=== PATIENT | male | born 1940 | race Caucasian/White ===

== ENCOUNTER → 2017-02-11 | Outpatient (CLI) | payer MEDICARE, OTHER ==
[2017-02-11 11:36] LABS: Blood Urea Nitrogen 11 mg/dL (9-20); Non-African American GFR(MDRD) >60 (>60 ml/min/1.73 sqM)
--- NOTE | 2017-02-12 10:43 | CT ---
EXAMINATION TYPE: CT ChestAbdPelvis w con DATE OF EXAM: 02/11/2017 INDICATION: Lung cancer COMPARISON: 07/30/2016 CT chest abdomen pelvis [facility]. CT DLP: 1833 mGycm CONTRAST: Performed with Oral Contrast and with IV Contrast, patient injected with 100 mL of Omnipaque 300. TECHNIQUE: Axial images at 5 mm thick sections. Reconstructed images in the coronal plane. Delayed images through the kidneys. FINDINGS: CT CHEST: Portion of the thyroid visualized is normal. There is stranding and thickening through the superior right hilar region. This area appears stable f rom comparison. There is a 0.4 cm area of increased density in the posterior lateral right lung and some vascular inv olvement. Series 3 image 33 this is stable from 07/30/2016. No enlarged mediastinal or hilar adenopathy is evident. The ascending aorta diameter at the level of the main pulmonary artery is 3.0 cm. The main pulmonary artery diameter at the bifurcation is 1.6 cm. Coronary artery calcification is likely present. CT ABDOMEN: Liver: There is a 0.8 cm hypodensity in the superior left lobe liver is better visualized currently o n this examination and appears more cystlike currently. Spleen: Normal Pancreas: Normal Adrenal glands: The adrenal glands are normal. Gallbladder: Normal Kidneys: No masses are evident. No hydronephrosis is present. No cysts are present. Delayed images were obtained through the kidneys, which remain unremarkable. Aorta: Vascular calcification is within the aorta. There is a stable infrarenal abdominal aortic fus iform prominence with an AP diameter of 3.4 cm. Partial resection may be present midportion. Series 3 image 75. These findings are stable from the comparison. 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 These are stable from comparison. Inferior vena cava: Normal. CT PELVIS: Loops of bowel within the abdomen and pelvis are normal. There are loops of bowel which are incom pletely distended or lack oral contrast limiting their evaluation. Diverticular changes are within th e sigmoid colon. Appendix: Normal as visualized. Urinary bladder: Normal. Genitourinary structures: Prostate is prominent. Osseous structures: No suspicious lytic or sclerotic lesions. Few small inguinal lymph nodes are present. IMPRESSIONS: 1. Stable right suprahilar and apical findings. 2. Stable 3.4 cm abdominal aortic fusiform prominence. 3. Diverticulosis without acute diverticulitis. 4. Stable hypodensity within the liver
== END | disposition home or self-care (01) ==
LOC: RADCTMAIN 10:42
PROVIDERS: ATTEND Internal Medicine Hematology & Oncology
DX: K57.90 Diverticulosis of intestine, part unspecified, without perforation or abscess without bleeding (principal); R93.2 Abnormal findings on diagnostic imaging of liver and biliary tract; C34.11 Malignant neoplasm of upper lobe, right bronchus or lung
CPT/HCPCS: 82565; 84520; 71260; 74177; 36415; Q9967

== ENCOUNTER → 2017-09-09 | Outpatient (CLI) | payer MEDICARE, OTHER ==
--- NOTE | 2017-09-09 13:43 | CT ---
EXAMINATION TYPE: CT ChestAbdPelvis w con DATE OF EXAM: 09/09/2017 COMPARISON: 02/11/2017 HISTORY: 77-year-old male follow-up Lung CA TECHNIQUE: Contiguous axial scanning of the chest, abdomen, and pelvis performed with IV Contrast, pa tient injected with 100 mL of Isovue 300. Delayed images through the kidneys were obtained. Coronal/s agittal reconstructions performed. CT DLP: 976.9 mGycm Automated exposure control for dose reduction was used. FINDINGS: Chest: Heart is normal size without pericardial effusion. Coronary vessel calcifications are present in jagdeep rkable for coronary artery disease. Mild atherosclerotic calcifications and plaques throughout the thoracic aorta. Monitor scarring narro wing at the origin of the left subclavian artery. Conventional arch vessel branching anatomy. Stable medial right upper lobe volume loss and consolidation extending up to the apex from the hilum. Additional strandy and patchy densities throughout the right upper lobe are also unchanged with more focal density posteriorly suggesting scar. A 6 mm subpleural pulmonary nodule posterior superior segment right lower lobe axial image 17 appears new but could represent an area of nodular atelectasis. Strandy bibasilar atelectasis. No new consolidation or pleural effusion. Numerous collateral vessels redemonstrated along the anterior left upper chest No thoracic lymphadenopathy. ABDOMEN: Subcentimeter hypodensity left hepatic dome is unchanged Questionable filling defect within the lower bile duct, axial image 66 and coronal image 38. Bile nancy t caliber is unchanged at 6 mm. Gallbladder, adrenal glands, kidneys, spleen, and pancreas show no gross abnormal mobility. No dilated small bowel, free fluid, or free air. Normal appendix. Oral contrast has progressed to the distal transverse colon. There is left hemicolon ic diverticulosis, greatest in the proximal sigmoid without pericolonic inflammatory change. Moderate atherosclerotic calcifications throughout the abdominal aorta and iliac arteries. Accessory right renal artery is noted. Fusiform AAA measuring 3.3 cm not significantly changed. Moderate atherosclerotic changes within the iliac arteries with a ectasia of the right and left common iliac arteries at 1.6 cm each relatively s imilar. Pelvis: Bladder urine distended. Prostate gland prominent at 4.5 cm wide. No abnormal fluid collection in the pelvis or pelvic lymphadenopathy. Bones: Mild degenerative changes of the hips. Additional degenerative changes mid to lower lumbar spine and endplate spondylosis mid to lower thoracic spine. No osseous destructive process. IMPRESSION: 1. STABLE MEDIAL RIGHT UPPER LOBE VOLUME LOSS AND CONSOLIDATION EXTENDING FROM THE APEX TO THE HILUM. FINDING SUGGEST CHRONIC POSTTREATMENT CHANGE. 2. A 6 MM SUBPLEURAL PULMONARY NODULE POSTERIOR RIGHT MID LUNG APPEARS NEW BUT MAY REPRESENT AN AREA OF NODULAR ATELECTASIS. 3 MONTH FOLLOW-UP EXAM IS RECOMMENDED TO REASSESS. 3. QUESTIONABLE FILLING DEFECT WITHIN THE LOWER BILE DUCT. CORRELATE WITH ALKALINE PHOSPHATASE AND BI LIRUBIN LEVELS. THE OVERALL CALIBER OF THE BILE DUCT IS STABLE AND NORMAL. IF NO INTERVENTION AT THIS TIME, THIS CAN ALSO BE REASSESSED AT THE 3 MONTH FOLLOW-UP. 4. 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 5. LEFT-SIDED COLONIC DIVERTICULOSIS.
== END | disposition home or self-care (01) ==
LOC: RADCTMAIN 10:02
PROVIDERS: ATTEND Internal Medicine Hematology & Oncology
DX: C34.11 Malignant neoplasm of upper lobe, right bronchus or lung (principal); J98.4 Other disorders of lung; R91.1 Solitary pulmonary nodule; I71.4 Abdominal aortic aneurysm, without rupture; K57.30 Diverticulosis of large intestine without perforation or abscess without bleeding; I77.89 Other specified disorders of arteries and arterioles
CPT/HCPCS: 82565; 84520; 71260; 74177; 36415; Q9967

== ENCOUNTER → 2018-01-09 | Outpatient (CLI) | payer MEDICARE, OTHER ==
--- NOTE | 2018-01-09 11:18 | CT ---
EXAMINATION TYPE: CT chest w con DATE OF EXAM: 01/09/2018 COMPARISON: Chest CT September 09, 2017 and older studies. HISTORY: Lung cancer CT DLP: 375.50 mGycm. Automated Exposure Control for Dose Reduction was Utilized. TECHNIQUE: CT scan of the thorax is performed following with IV Contrast, patient injected with 100 ml mL of Isovue 300. FINDINGS: LUNGS: There is redemonstration of pleural and parenchymal scarring in the right upper lobe with volu me loss, there is honeycombing most prominent along medial aspect of the right upper lobe abutting th e mediastinum redemonstrated. There is stable 6 x 4 mm subpleural nodular consolidation superior aspe ct right lower lobe axial image 21 favoring round atelectasis. No new parenchymal nodules or masses a re identified bilaterally. There is new small to tiny right pleural effusion noted with associated co mpressive and linear atelectasis in the right lung base. Right hilar bronchial wall thickening remain s present. MEDIASTINUM: There are no new greater than 1 cm hilar or mediastinal lymph nodes. There is stable sof t tissue thickening right hilar region near axial image 24 significant change from prior studies. N o cardiomegaly or pericardial effusion is seen. Moderate mixed plaque in the aortic arch and descend ing aorta is present. OTHER: Plaque extends into abdominal aorta and branch vessels. There is partial visualization of th e infrarenal abdominal aortic aneurysm measuring up to 3.1 cm on axial image 74. Occasional subcentim eter low dense lesions throughout liver is redemonstrated 2 small to further characterize per presume d benign for reference axial image 52 left hepatic dome. Prominent collateral vessels in the left ant erior upper chest are redemonstrated IMPRESSION: Overall stable findings, post treatment changes right upper lung and hilum redemonstrated . No new suspicious nodules or masses clearly seen.
== END ==
LOC: RADCTMAIN 08:43
PROVIDERS: ATTEND Internal Medicine Hematology & Oncology
DX: C34.11 Malignant neoplasm of upper lobe, right bronchus or lung (principal)
CPT/HCPCS: 82565; 84520; 71260; 36415; Q9967

== ENCOUNTER → 2018-06-01 | Outpatient (CLI) | payer MEDICARE, OTHER ==
--- NOTE | 2018-06-01 13:39 | CT ---
EXAMINATION TYPE: CT chest w con DATE OF EXAM: 06/01/2018 COMPARISON: 01/09/2018 HISTORY: Lung CA CT DLP: 323 mGycm Automated exposure control for dose reduction was used. CONTRAST: CT scan of the chest is performed with IV Contrast, patient injected with 80 mL of Isovue 300. FINDINGS: LUNGS: There is redemonstration of pleural and parenchymal scarring in the right upper lobe with volu me loss, there is honeycombing most prominent along medial aspect of the right upper lobe abutting th e mediastinum redemonstrated. There is stable 6 x 4 mm subpleural nodular consolidation superior aspe ct right lower lobe unchanged prior exam. No new parenchymal nodules or masses are identified bilater ally. There is a small to pleural effusion noted with associated compressive and linear atelectasis in the right lung base. Right hilar bronchial wall thickening remains present. On image 34 there is a vague area of nodularity measuring 5 mm within the superior segment right lower lobe stable from the prior exam. MEDIASTINUM: There are no new greater than 1 cm hilar or mediastinal lymph nodes. There is stable sof t tissue fullness and thickening along the right hilum unchanged from prior exam. No pericardial effu sanket or cardiomegaly. Atherosclerotic changes of the aorta noted. Coronary artery calcification seen. There is reduced enhancement of the azygos vein which may be related to the phase of imaging althoug h a chronic thrombosis not excluded and appear stable. OTHER: Plaque extends into abdominal aorta and branch vessels. There is partial visualization of the infrarenal abdominal aortic aneurysm measuring up to 3.1 cm. Occasional subcentimeter low dense lesi ons throughout liver is redemonstrated 2 small to further characterize per presumed benign left hepat ic dome. Hypertrophic and degenerative change of the vertebral column. There is a stable subcutaneous nodule in the anterior chest wall measuring 9 mm. Numerous collateral venous prominent structures are seen involving the left upper extremity within th e subcutaneous tissues. This suggest either central venous occlusion. As noted above the azygous vein does not enhance well. Visualized SVC is patent. Ultrasound could BE obtained to assess remaining ve nous anatomy. Finding is stable and therefore likely chronic. Cystic changes involving the glenoid are stable and likely post arthritic unchanged from multiple estrella or CT scans. IMPRESSION: 1. Stable posttreatment changes involving the right upper lung and hilum are unchanged from the prior exam. No stenosis but pulmonary nodules.
== END ==
LOC: RADCTMAIN 08:12
PROVIDERS: ATTEND Internal Medicine Hematology & Oncology
DX: C34.11 Malignant neoplasm of upper lobe, right bronchus or lung (principal); Z98.890 Other specified postprocedural states
CPT/HCPCS: 82565; 84520; 71260; 36415; Q9967

== ENCOUNTER → 2018-11-30 | Outpatient (CLI) | payer MEDICARE, OTHER ==
--- NOTE | 2018-11-30 10:33 | CT ---
EXAMINATION TYPE: CT chest w con DATE OF EXAM: 11/30/2018 COMPARISON: CT chest June 01, 2018 and older CTs HISTORY: Follow up lung cancer initially diagnosed 3.[address] DLP: 334.3 mGycm. Automated Exposure Control for Dose Reduction was Utilized. TECHNIQUE: CT scan of the thorax is performed following with IV Contrast, patient injected with 80 m L of Isovue 300. FINDINGS: LUNGS: There is persistent right upper lung volume loss with medial scarring extending to the right h ilum with superior extension to the right lung apex where there is moderate pleural/parenchymal scarr ing. Right hilar retraction is redemonstrated. There is increasing soft tissue fullness right hilar/s uprahilar region seen best coronal image 52 and axial image 17 where right upper lobe bronchus bifurc ates. This area is suspicious for recurrent neoplasm measuring roughly 2.1 x 2.2 cm axial image 16. T here is increased soft tissue abutting the mediastinum just posterior to the SVC at this level. Subca rinal soft tissue extension also is more prominent versus prior study. There is persistent right basi lar linear scarring. Left lung remains clear. No pleural effusion or pneumothorax is noted. MEDIASTINUM: There are no greater than 1 cm hilar or mediastinal lymph nodes. No cardiomegaly or pe ricardial effusion is seen. Coronary artery calcification is present which is noted marker for under lying coronary artery disease. Poor enhancement of the azygos vein is again noted, cannot exclude grazyna t in portions similar to prior. OTHER: There is stable 9 mm anterior right lower thoracic dermal-based lesion axial image 41 presumed benign. Aneurysm of the renal abdominal aorta up to 3.3 cm on inferior axial images is li ernie stable from prior studies. Moderate multilevel spurring of thoracic spine is redemonstrated. Pro minent collateral vessels anterior left upper extremity are redemonstrated. 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 IMPRESSION: Suspicious increasing soft tissue right hilar/suprahilar level worrisome for recurrent ne oplasm. Consider bronchoscopy and/or PET/CT to further evaluate.
== END | disposition home or self-care (01) ==
LOC: RADCTMAIN 08:57
PROVIDERS: ATTEND Internal Medicine Hematology & Oncology
DX: Z03.89 Encounter for observation for other suspected diseases and conditions ruled out (principal); C34.11 Malignant neoplasm of upper lobe, right bronchus or lung
CPT/HCPCS: 82565; 84520; 71260; Q9967

== ENCOUNTER → 2018-12-11 | Outpatient (CLI) | payer MEDICARE ==
--- NOTE | 2018-12-14 14:34 | PE ---
Nuclear medicine PET/CT HISTORY: Lung carcinoma, subsequent Patient received 11.3 mCi F-18 FDG intravenously in delayed scanning was performed from the skull bas e to the mid thighs. Localization and attenuation correction CT scan was performed Correlation CT chest 11/30/2018 Neck and chest: Abnormal soft tissue within the right suprahilar region shows associated hypermetabol ic uptake, SUV is 10.2. Probable posttreatment changes, scarring and postradiation findings are again seen. There is no evident mediastinal or axillary adenopathy. No cervical or supraclavicular adenopa thy. No additional hypermetabolic uptake. No pleural or pericardial effusion. Coronary artery calcifi cations are present. ABDOMEN: There is no evident liver mass. No adrenal lesion or retroperitoneal adenopathy. No suspicio us hypermetabolic uptake. There is a infrarenal abdominal aortic aneurysm present measuring 2.7 cm. P rostate is enlarged and shows associated calcification. Osseous structures: Degenerative disc changes at the lumbosacral spine. There is associated facet art hropathy in the lumbar spine. IMPRESSION: Findings compatible with recurrent lung carcinoma.
== END | disposition home or self-care (01) ==
LOC: RADPETMAIN 14:17
PROVIDERS: ATTEND Internal Medicine Hematology & Oncology
DX: C34.11 Malignant neoplasm of upper lobe, right bronchus or lung (principal)
CPT/HCPCS: 78815; A9552

== ENCOUNTER 2018-12-24 09:51 | Day surgery (SDC) | payer MEDICARE ==
[2018-12-21 11:39] VITALS: BMI 25.4
[~2018-12-24 09:51] MED LIST: ALBUTEROL NEB (CONC) 2.5 MG/0.5 ML INHALATION ONE; ATROPINE SULFATE 0.4 MG/ML 1 ML VIAL IM ONE; HYDROmorphone 0.5 MG/0.5 ML SYRINGE IVP PRN; LACTATED RINGERS 1,000 ML IV SCH; LIDOCAINE 1% 20 ML VIAL (10MG/ML) FOR IV START INTRADERMA PRN; LIDOCAINE 2% (PF) 20 MG/ML 5 ML VIAL INHALATION ONE; LIDOCAINE VISCOUS 300 MG/15 ML CUP MUCOUS MEM ONE; ONDANSETRON 4 MG/2 ML VIAL IVP ONE; SODIUM CHLORIDE 0.9% 1,000 ML IV SCH
--- NOTE | 2018-12-24 11:22 | CT ---
EXAMINATION TYPE: CT Chest gia Andrew Protocol DATE OF EXAM: 12/24/2018 COMPARISON: Chest CT November 30, 2018 and older CTs. Most recent PET/CT December 11, 2018. HISTORY: Prebronchoscopy. History of lung cancer with recent abnormal CT and PET/CT. CT DLP: 563 mGycm Automated exposure control for dose reduction was used. FINDINGS: Exam is for bronchoscopy planning and not for diagnostic purposes. Background right-sided volume loss with mediastinal shift and superior hilar retraction. Persistent suprahilar masslike consolidation c orrelates with recent CT and PET/CT suspicious for neoplastic recurrence. Trace right pleural effusio n noted on current study. Coronary artery calcification is incidentally noted. IMPRESSION: As above.
[2018-12-24] MEDS ORDERED: fentaNYL (PF) 50 MCG/ML 2 ML AMP ONE (12:09)
[2018-12-24] MEDS ORDERED: LIDOCAINE 1% INJ 10MG/ML (20 ML MDV) ONE (12:09)
[2018-12-24] MEDS ORDERED: SUCCINYLCHOLINE CHLORIDE 100 MG/5 ML SYR IV ONE (12:09)
[2018-12-24] MEDS ORDERED: ePHEDrine SULFATE/0.9% NACL/PF 50 MG/5 ML SYRINGE IV ONE (12:09)
[2018-12-24] MEDS ORDERED: ROCURONIUM BROMIDE 10 MG/ML 10 ML VIAL IV ONE (12:09)
[2018-12-24] MEDS ORDERED: NEOSTIGMINE 1 MG/ML 10 ML VIAL ONE (12:09)
[2018-12-24] MEDS ORDERED: PHENYLEPHRINE-0.9% NACL SYG 1 MG/10 ML SYRINGE ONE (12:09)
[2018-12-24] MEDS ORDERED: GLYCOPYRROLATE 0.2 MG/ML 2 ML VIAL ONE (12:09)
[2018-12-24] MEDS ORDERED: PROPOFOL 10 MG/ML 20 ML VIAL IV ONE (12:09)
[2018-12-24] MEDS ORDERED: MIDAZOLAM 2 MG/2 ML VIAL ONE (12:09)
[2018-12-24] MEDS ORDERED: IV FLUID CONTINUATION 1,000 ML IV ONE (13:21)
[2018-12-24 13:42] VITALS: TEMP 97
[2018-12-24 14:32] VITALS: RESP 16
--- NOTE | 2018-12-24 14:45 | XR ---
EXAMINATION TYPE: XR chest 1V portable DATE OF EXAM: 12/24/2018 COMPARISON: NONE HISTORY: Status post right upper lobe biopsy TECHNIQUE: Single frontal view of the chest is obtained. FINDINGS: Right upper lobe consolidation or mass is noted. There is a small right pleural effusion. No sizable pneumothorax. Underlying COPD noted. Diffuse osteopenia and arthropathy of the shoulders. IMPRESSION: No evidence of pneumothorax post biopsy. Right upper lobe consolidation or mass is noted .
[2018-12-24 15:01] VITALS: BP 160/82; PULSE 80
[2018-12-24 20:54] LABS: Appearance,BF Bloody; Color,BF Red; Nucleated Cells, Body Fluid 20 /uL
[2018-12-24 20:55] LABS: Mononuclear WBC,Body Fluid 16 %; Polynuclear WBC,Body Fluid 82 %; RBC, Body Fluid 14500 /uL
--- NOTE | 2018-12-25 06:33 | PCN ---
PROCEDURE NOTE PROCEDURE: Electromagnetic navigational bronchoscopy. OPERATORS: Dr. Palm and Dr. Epps. There was informed consent and universal timeout. The specimens were obtained in the right upper lobe. PREOPERATIVE DIAGNOSIS: Rule out recurrent lung cancer. POSTOPERATIVE DIAGNOSIS: Rule out recurrent lung cancer. PROCEDURE: The patient was seen prior to surgery and all the paperwork and so forth were signed. After the patient was adequately anesthetized and sedated, the bronchoscope was inserted through the bronchoscope adapter connected to the endotracheal tube. The bronchoscope was taken down into the area of the right upper lobe. Under electromagnetic guidance, we did multiple brushes, transbronchial biopsies and needle biopsies of the right upper lobe. We did localization. We also did a bronchoalveolar lavage of the right upper lobe. The patient tolerated the procedure well. There was no complication. There was minimal bleeding. The pathologist was in the room and looked at the specimens and thought they did see atypical cells, which could be consistent with recurrent cancer. He could not give a definite answer one way or the other. The bronchoscope was withdrawn and the patient will be recovered. The anesthesiologist was Dr. Fry and the nurse power system dispatcher was Fabienne Stinson CRNA. Again, the procedure was done under general anesthesia. No immediate complications. Chest x-ray was ordered. MMODL / IJN: [id number] / MTDD
== END 2018-12-24 15:12 | disposition home or self-care (01) ==
LOC: ORWHC2ENDO 09:51
PROVIDERS: ATTEND Internal Medicine Critical Care Medicine
DX: C34.11 Malignant neoplasm of upper lobe, right bronchus or lung (principal); J44.9 Chronic obstructive pulmonary disease, unspecified; F17.210 Nicotine dependence, cigarettes, uncomplicated; Z92.3 Personal history of irradiation; Z92.21 Personal history of antineoplastic chemotherapy; Z82.3 Family history of stroke; Z80.0 Family history of malignant neoplasm of digestive organs; Z80.8 Family history of malignant neoplasm of other organs or systems; H91.90 Unspecified hearing loss, unspecified ear; Z97.2 Presence of dental prosthetic device (complete) (partial); Z79.1 Long term (current) use of non-steroidal anti-inflammatories (NSAID); Z79.51 Long term (current) use of inhaled steroids; Z79.899 Other long term (current) drug therapy
CPT/HCPCS: 88104; 88108; 88305; 88173; 89050; 88342; 88341; 87070; 87205; 71045; 71250; 31628; 31623; 31624; 31627; J2250; J2710; J2405; J2001; J3010; J2370; J0330; J2704; 31625; 31629

== ENCOUNTER 2019-01-25 19:34 | Emergency (ER) | payer MEDICARE, OTHER ==
[2019-01-25 19:43] VITALS: TEMP 98
--- NOTE | 2019-01-25 20:36 | XR ---
EXAMINATION TYPE: XR chest 2V DATE OF EXAM: 01/25/2019 COMPARISON: 12/24/2018 HISTORY: Weakness and short of breath TECHNIQUE: Frontal and lateral views of the chest are obtained. FINDINGS: There is 4.5 cm area of masslike density at the superior right pulmonary hilum. There is s ome right upper lobe atelectasis. Heart is shifted slightly to the right side. Left lung is clear. Th ere is no heart failure. There is small right pleural effusion. IMPRESSION: Right upper lobe mass with volume loss. Small right pleural effusion. Mass appears incre ased slightly compared to old exam.
[2019-01-25 20:48] LABS: Basophils % (A) 1 %; Eosinophils # (A) 0.2 k/uL (0-0.7); Eosinophils % (A) 3 %; HCT 37.8 % (39.0-53.0); HGB 12.9 gm/dL (13.0-17.5); Lymphocytes # (A) 1.3 k/uL (1.0-4.8); Lymphocytes % (A) 16 %; MCH 30.9 pg (25.0-35.0); MCHC 34.3 g/dL (31.0-37.0); MCV 90.2 fL (80.0-100.0); Mean Platelet Volume 6.8; Monocytes # (A) 0.5 k/uL (0-1.0); Monocytes % (A) 6 %; Neutrophils % (A) 72 %; Platelet Count 319 k/uL (150-450); RBC 4.19 m/uL (4.30-5.90); RDW 12.8 % (11.5-15.5); WBC 8.3 k/uL (3.8-10.6)
[2019-01-25 20:53] LABS: Albumin 3.4 g/dL (3.5-5.0); Calcium 8.6 mg/dL (8.4-10.2); Potassium 3.8 mmol/L (3.5-5.1); Total Bilirubin 0.1 mg/dL (0.2-1.3); Total Protein 6.8 g/dL (6.3-8.2)
[2019-01-25 20:54] LABS: INR 0.9 (<1.2); Prothrombin Time 9.6 sec (9.0-12.0)
--- NOTE | 2019-01-25 21:06 | ED ---
Weakness HPI - General Chief complaint: Weakness Stated complaint: Weakness Time Seen by Provider: 01/25/19 20:26 Source: patient, EMS, RN notes reviewed, old records reviewed Mode of arrival: EMS Limitations: no limitations - History of Present Illness Initial comments: This is a 78-year-old male the ER for evaluation. Patient is today with family in by EMS for evaluation of not acting appropriately. Patient does admit to some alcohol drinking today. Patient has history of recent diagnosis of lung CA. Denies headache. No significant findings here. No recent travel history or sick contacts. Patient again doesn't to drinking some alcohol today. He states he is currently feeling very well, has no complaints. States patient is basically at his baseline currently. No recent change in medications. No drug use MD Complaint: generalized weakness, lack of energy -: hour(s) Location: generalized Severity: mild Severity scale (1-10): 2 Consistency: now resolved Improves with: none Worsens with: none Context: recent illness Associated Symptoms: denies other symptoms - Related Data Home Medications Medication Instructions Recorded Confirmed Albuterol Inhaler [Ventolin Hfa 2 puff INHALATION RT-Q4H PRN 12/21/18 01/25/19 Inhaler] Albuterol Nebulized [Ventolin 2.5 mg INHALATION RT-QID PRN 12/21/18 01/25/19 Nebulized] Fluticasone Propionate [Flonase 1 spray EA NOSTRIL DAILY PRN 12/21/18 01/25/19 Allergy Relief] Fluticasone/Salmeterol [Advair Hfa 2 puff INHALATION RT-BID 12/21/18 01/25/19 230-21 Mcg Inhaler] Allergies Allergy/AdvReac Type Severity Reaction Status Date / Time No Known Allergies Allergy Verified 01/25/19 20:07 Review of Systems ROS Statement: Those systems with pertinent positive or pertinent negative responses have been documented in the HPI. ROS Other: All systems not noted in ROS Statement are negative. Past Medical History Past Medical History: Cancer, COPD, Hearing Disorder / Deafness, Osteoarthritis (OA) Additional Past Medical History / Comment(s): LUNG CA 2014, HAD RADIATION & CHEMO TX; RECENT ABN PET SCAN. History of Any Multi-Drug Resistant Organisms: None Reported Past Surgical History: Orthopedic Surgery Additional Past Surgical History / Comment(s): SURG 5TH RIB AREA, HAD LUMP IN AXILLA. ORIF LT TIB-FIB FX. Past Anesthesia/Blood Transfusion Reactions: No Reported Reaction Past Psychological History: No Psychological Hx Reported Smoking Status: Current every day smoker - Past Family History Mother Family Medical History: Cancer Additional Family Medical History / Comment(s): BRAIN CA Son(s) Family Medical History: Cancer Additional Family Medical History / Comment(s): TESTICULAR CA General Exam Limitations: no limitations General appearance: alert, in no apparent distress, appears intoxicated Head exam: Present: atraumatic, normocephalic, normal inspection Eye exam: Present: normal appearance, PERRL, EOMI. Absent: scleral icterus, conjunctival injection, periorbital swelling ENT exam: Present: normal exam, mucous membranes moist Neck exam: Present: normal inspection. Absent: tenderness, meningismus, lymphadenopathy Respiratory exam: Present: normal lung sounds bilaterally. Absent: respiratory distress, wheezes, rales, rhonchi, stridor Cardiovascular Exam: Present: regular rate, normal rhythm, normal heart sounds. Absent: systolic murmur, diastolic murmur, rubs, gallop, clicks GI/Abdominal exam: Present: soft, normal bowel sounds. Absent: distended, tenderness, guarding, rebound, rigid Extremities exam: Present: normal inspection, full ROM, normal capillary refill. Absent: tenderness, pedal edema, joint swelling, calf tenderness Back exam: Present: normal inspection Neurological exam: Present: alert, oriented X3, CN II-XII intact Psychiatric exam: Present: normal affect, normal mood Skin exam: Present: warm, dry, intact, normal color. Absent: rash Course Vital Signs 01/25/19 01/25/19 01/25/19 19:40 21:33 21:35 Temperature 98.0 F Pulse Rate 81 81 Respiratory 20 20 Rate Blood Pressure 99/86 O2 Sat by Pulse 98 Oximetry 01/25/19 21:47 Temperature Pulse Rate 82 Respiratory Rate Blood Pressure O2 Sat by Pulse Oximetry - Reevaluation(s) Reevaluation #1: 01/25/19 23:02 Medical records reviewed Reevaluation #2: 01/25/19 23:02 Reexamined patient is adequately hydrated able to eat and drink without difficulty and walk without significant abnormality EKG Findings - EKG Comments: EKG Findings:: EKG shows sinus rhythm rate of 82, MD 180, QRS 80, QTC 464 Medical Decision Making - Medical Decision Making 78 male in her on increased 2 months stress secondary to recent diagnosis of lung tumor, CVA. Patient was recent alcohol today became sort of out of it speaking with his son, symptoms resolved here in the ER. Patient has no finding s on exam and patient can be discharged home - Lab Data Result diagrams: 01/25/19 20:25 01/25/19 20:25 Lab Results 01/25/19 01/25/19 01/25/19 Range/Units 20:25 20:25 20:25 WBC 8.3 (3.8-10.6) k/uL RBC 4.19 L (4.30-5.90) m/uL Hgb 12.9 L (13.0-17.5) gm/dL Hct 37.8 L (39.0-53.0) % MCV 90.2 (80.0-100.0) fL MCH 30.9 (25.0-35.0) pg MCHC 34.3 (31.0-37.0) g/dL RDW 12.8 (11.5-15.5) % Plt Count 319 (150-450) k/uL Neutrophils % 72 % Lymphocytes % 16 % Monocytes % 6 % Eosinophils % 3 % Basophils % 1 % Neutrophils # 6.0 (1.3-7.7) k/uL Lymphocytes # 1.3 (1.0-4.8) k/uL Monocytes # 0.5 (0-1.0) k/uL Eosinophils # 0.2 (0-0.7) k/uL Basophils # 0.0 (0-0.2) k/uL PT (9.0-12.0) sec INR (<1.2) APTT (22.0-30.0) sec Sodium 142 (137-145) mmol/L Potassium 3.8 (3.5-5.1) mmol/L Chloride 106 (98-107) mmol/L Carbon Dioxide 24 (22-30) mmol/L Anion Gap 12 mmol/L BUN 12 (9-20) mg/dL Creatinine 1.07 (0.66-1.25) mg/dL Est GFR (CKD-EPI)AfAm 78 (>60 ml/min/1.73 sqM) Est GFR (CKD-EPI)NonAf 67 (>60 ml/min/1.73 sqM) Glucose 108 H (74-99) mg/dL Plasma Lactic Acid Feliberto 1.4 (0.7-2.0) mmol/L Calcium 8.6 (8.4-10.2) mg/dL Magnesium 2.0 (1.6-2.3) mg/dL Total Bilirubin 0.1 L (0.2-1.3) mg/dL AST 19 (17-59) U/L ALT 21 (21-72) U/L Alkaline Phosphatase 108 (38-126) U/L Troponin I (0.000-0.034) ng/mL Total Protein 6.8 (6.3-8.2) g/dL Albumin 3.4 L (3.5-5.0) g/dL Serum Alcohol 184 mg/dL 01/25/19 01/25/19 Range/Units 20:25 20:25 WBC (3.8-10.6) k/uL RBC (4.30-5.90) m/uL Hgb (13.0-17.5) gm/dL Hct (39.0-53.0) % MCV (80.0-100.0) fL MCH (25.0-35.0) pg MCHC (31.0-37.0) g/dL RDW (11.5-15.5) % Plt Count (150-450) k/uL Neutrophils % % Lymphocytes % % Monocytes % % Eosinophils % % Basophils % % Neutrophils # (1.3-7.7) k/uL Lymphocytes # (1.0-4.8) k/uL Monocytes # (0-1.0) k/uL Eosinophils # (0-0.7) k/uL Basophils # (0-0.2) k/uL PT 9.6 (9.0-12.0) sec INR 0.9 (<1.2) APTT 26.0 (22.0-30.0) sec Sodium (137-145) mmol/L Potassium (3.5-5.1) mmol/L Chloride (98-107) mmol/L Carbon Dioxide (22-30) mmol/L Anion Gap mmol/L BUN (9-20) mg/dL Creatinine (0.66-1.25) mg/dL Est GFR (CKD-EPI)AfAm (>60 ml/min/1.73 sqM) Est GFR (CKD-EPI)NonAf (>60 ml/min/1.73 sqM) Glucose (74-99) mg/dL Plasma Lactic Acid Feliberto (0.7-2.0) mmol/L Calcium (8.4-10.2) mg/dL Magnesium (1.6-2.3) mg/dL Total Bilirubin (0.2-1.3) mg/dL AST (17-59) U/L ALT (21-72) U/L Alkaline Phosphatase (38-126) U/L Troponin I <0.012 (0.000-0.034) ng/mL Total Protein (6.3-8.2) g/dL Albumin (3.5-5.0) g/dL Serum Alcohol mg/dL - Radiology Data Radiology results: report reviewed (Chest x-rays negative for acute disease), image reviewed Disposition Clinical Impression: Dehydration, Weakness Disposition: HOME SELF-CARE Condition: Good Instructions (If sedation given, give patient instructions): Weakness (ED) Is patient prescribed a controlled substance at d/c from ED?: No Referrals: None,Stated [Primary Care Provider] - 1-2 days
[2019-01-25] MEDS ORDERED: IPRATROPIUM-ALBUTEROL 3 ML NEB INHALATION STA (21:22)
[2019-01-25 21:49] VITALS: PULSE 82
[2019-01-25 23:34] VITALS: BP 125/63; RESP 18
== END 2019-01-25 23:34 | disposition home or self-care (01) ==
LOC: EC 19:34
DX: E86.0 Dehydration (principal); R53.1 Weakness; J44.9 Chronic obstructive pulmonary disease, unspecified; H91.90 Unspecified hearing loss, unspecified ear; F17.200 Nicotine dependence, unspecified, uncomplicated; Z79.51 Long term (current) use of inhaled steroids; Z85.118 Personal history of other malignant neoplasm of bronchus and lung; Z92.21 Personal history of antineoplastic chemotherapy; Z92.3 Personal history of irradiation
CPT/HCPCS: 36415; 94640; 93005; 80053; 83605; 83735; 84484; 85025; 85610; 85730; 71046; 99285; G0480; 80320

== ENCOUNTER → 2019-04-05 | Outpatient (CLI) | payer OTHER ==
--- NOTE | 2019-04-05 17:02 | CT ---
EXAMINATION TYPE: CT chest wo/w con DATE OF EXAM: 04/05/2019 COMPARISON: 11/30/2018, 12/24/2018 HISTORY: Lung ca, upper lobe RT bronchus. Lung stage 3A. CT DLP: 695.60 mGycm, Automated exposure control for dose reduction was used. CONTRAST: Performed injected without and with 100 mL of Isovue 300. TECHNIQUE: Axial images were obtained at 5 mm thick sections. Reconstructed images are reviewed on [employer] computer in the coronal plane. FINDINGS: Portion of the thyroid visualized is normal. There is a right medial apical lung mass with air bronchograms. This extends to the right suprahilar region. There is a small density within the posterior right midlung measuring 0.6 cm. Series 8 image 35. This is better visualized on the current exam. No enlarged mediastinal or hilar adenopathy is evident. The ascending aorta diameter at the level o f the main pulmonary artery is 3.3 cm. The main pulmonary artery diameter at the bifurcation is 2.2 cm. Mild coronary artery calcification is present. Limited CT sections are obtained through the upper abdomen. There is fusiform prominence of the proxi mal abdominal aorta measuring 3.5 cm in AP dimension within the [id number]. This was present previ ously. No suspicious change between pre and postcontrast imaging is evident. IMPRESSIONS: 1. Increased density at the right lung medial apex compatible with the patient's lung cancer. This ap pears to be worsening from comparison.
== END ==
LOC: RADCTMAIN 14:18
PROVIDERS: ATTEND Radiology Radiation Oncology
DX: R91.8 Other nonspecific abnormal finding of lung field (principal); C34.11 Malignant neoplasm of upper lobe, right bronchus or lung; Z92.21 Personal history of antineoplastic chemotherapy
CPT/HCPCS: 82565; 84520; 71270; 36415; Q9967

== ENCOUNTER 2019-05-11 11:33 | Emergency (ER) | payer OTHER, MEDICARE ==
[2019-05-11 11:45] VITALS: TEMP 98.4
[2019-05-11] MEDS ORDERED: methylPREDNISolone SOD SUCCI 125 MG/2 ML VIAL IV STA (12:18)
--- NOTE | 2019-05-11 12:28 | ED ---
General Adult HPI - General Chief complaint: Shortness of Breath Stated complaint: Cough Time Seen by Provider: 05/11/19 12:07 Source: patient, RN notes reviewed Mode of arrival: wheelchair Limitations: no limitations - History of Present Illness Initial comments: Patient is a pleasant 78-year-old male presenting to the emergency Department with cough. Symptoms have been occurring for several days. Patient also has some mild rhinorrhea and minimal throat discomfort. has some similar symptoms. Patient is recently post radiation treatment for lung cancer. Patient does have some dyspnea however it is fairly normal for him. Patient states his cough is increased. Sometimes cough is dry, sometimes patient does have productive jon sputum which is normal for him as well. No leg pain or leg swelling. No fevers. Patient did get his pneumonia shot. - Related Data Home Medications Medication Instructions Recorded Confirmed Albuterol Inhaler [Ventolin Hfa 2 puff INHALATION RT-Q4H PRN 12/21/18 01/25/19 Inhaler] Albuterol Nebulized [Ventolin 2.5 mg INHALATION RT-QID PRN 12/21/18 01/25/19 Nebulized] Fluticasone Propionate [Flonase 1 spray EA NOSTRIL DAILY PRN 12/21/18 01/25/19 Allergy Relief] Fluticasone/Salmeterol [Advair Hfa 2 puff INHALATION RT-BID 12/21/18 01/25/19 230-21 Mcg Inhaler] Allergies Allergy/AdvReac Type Severity Reaction Status Date / Time No Known Allergies Allergy Verified 05/11/19 11:45 Review of Systems ROS Statement: Those systems with pertinent positive or pertinent negative responses have been documented in the HPI. ROS Other: All systems not noted in ROS Statement are negative. Constitutional: Denies: fever Eyes: Denies: eye pain ENT: Denies: ear pain Respiratory: Reports: as per HPI, cough Cardiovascular: Denies: chest pain Endocrine: Denies: fatigue Gastrointestinal: Denies: abdominal pain Genitourinary: Denies: dysuria Musculoskeletal: Denies: back pain Skin: Denies: rash Neurological: Denies: weakness Past Medical History Past Medical History: Cancer, COPD, Hearing Disorder / Deafness, Osteoarthritis (OA) Additional Past Medical History / Comment(s): LUNG CA 2014, HAD RADIATION & CHEMO TX; RECENT ABN PET SCAN. History of Any Multi-Drug Resistant Organisms: None Reported Past Surgical History: Orthopedic Surgery Additional Past Surgical History / Comment(s): SURG 5TH RIB AREA, HAD LUMP IN AXILLA. ORIF LT TIB-FIB FX. Past Anesthesia/Blood Transfusion Reactions: No Reported Reaction Past Psychological History: No Psychological Hx Reported Smoking Status: Current every day smoker Past Alcohol Use History: Occasional Past Drug Use History: None Reported - Past Family History Mother Family Medical History: Cancer Additional Family Medical History / Comment(s): BRAIN CA Son(s) Family Medical History: Cancer Additional Family Medical History / Comment(s): TESTICULAR CA General Exam Limitations: no limitations General appearance: alert, in no apparent distress Head exam: Present: normocephalic Eye exam: Present: normal appearance ENT exam: Present: normal oropharynx Neck exam: Present: normal inspection Respiratory exam: Present: wheezes (Mild expiratory wheeze), decreased breath sounds Cardiovascular Exam: Present: regular rate, normal rhythm GI/Abdominal exam: Present: soft. Absent: tenderness Extremities exam: Present: normal inspection. Absent: pedal edema, calf t enderness Neurological exam: Present: alert Psychiatric exam: Present: normal affect, normal mood Skin exam: Present: normal color Course Vital Signs 05/11/19 05/11/19 11:42 13:37 Temperature 98.4 F Pulse Rate 101 H 78 Respiratory 18 20 Rate Blood Pressure 152/79 149/68 O2 Sat by Pulse 99 96 Oximetry Medical Decision Making - Medical Decision Making Patient reevaluated and resting comfortably in chair. Lungs are clear to auscultation. Patient does not want breathing treatment. Patient and family updated on results. Patient requests discharge home. Patient offered steroids and antibiotics however refuses. Patient states he does have an appointment tomorrow with his lung doctor, Dr. Perkins. - Lab Data Result diagrams: 05/11/19 12:46 05/11/19 12:46 Lab Results 05/11/19 05/11/19 05/11/19 Range/Units 12:46 12:46 12:46 WBC 6.9 (3.8-10.6) k/uL RBC 4.64 (4.30-5.90) m/uL Hgb 14.7 (13.0-17.5) gm/dL Hct 43.5 (39.0-53.0) % MCV 93.7 (80.0-100.0) fL MCH 31.6 (25.0-35.0) pg MCHC 33.7 (31.0-37.0) g/dL RDW 13.6 (11.5-15.5) % Plt Count 329 (150-450) k/uL Neutrophils % 68 % Lymphocytes % 12 % Monocytes % 13 % Eosinophils % 2 % Basophils % 3 % Neutrophils # 4.7 (1.3-7.7) k/uL Lymphocytes # 0.8 L (1.0-4.8) k/uL Monocytes # 0.9 (0-1.0) k/uL Eosinophils # 0.1 (0-0.7) k/uL Basophils # 0.2 (0-0.2) k/uL Sodium 141 (137-145) mmol/L Potassium 4.4 (3.5-5.1) mmol/L Chloride 108 H (98-107) mmol/L Carbon Dioxide 27 (22-30) mmol/L Anion Gap 6 mmol/L BUN 11 (9-20) mg/dL Creatinine 0.95 (0.66-1.25) mg/dL Est GFR (CKD-EPI)AfAm 89 (>60 ml/min/1.73 sqM) Est GFR (CKD-EPI)NonAf 77 (>60 ml/min/1.73 sqM) Glucose 117 H (74-99) mg/dL Calcium 9.3 (8.4-10.2) mg/dL Total Bilirubin 0.4 (0.2-1.3) mg/dL AST 17 (17-59) U/L ALT 14 (4-49) U/L Alkaline Phosphatase 132 H (38-126) U/L Total Protein 7.4 (6.3-8.2) g/dL Albumin 3.9 (3.5-5.0) g/dL Influenza Type A RNA Not Detected (Not Detectd) Influenza Type B (PCR) Not Detected (Not Detectd) - Radiology Data Radiology results: image reviewed (Chest x-ray has findings consistent with p ute's history of lung carcinoma.) Disposition Clinical Impression: Upper respiratory infection, Mass of upper lobe of right lung Disposition: HOME SELF-CARE Condition: Stable Instructions (If sedation given, give patient instructions): Upper Respiratory Infection (ED) Additional Instructions: Please follow-up with Dr. Palm tomorrow as planned. Return for difficulty breathing, fevers, worsening symptoms or other concerns. Is patient prescribed a controlled substance at d/c from ED?: No Referrals: Emerson Palm DO [Primary Care Provider] - 1-2 days Time of Disposition: 13:53
--- NOTE | 2019-05-11 13:07 | XR ---
EXAMINATION TYPE: XR chest 2V DATE OF EXAM: 05/11/2019 COMPARISON: Prior chest x-ray 01/25/2019 HISTORY: Lung cancer TECHNIQUE: Frontal and lateral views of the chest are obtained. FINDINGS: The patient's right upper lobe lung mass is again noted, there is associated apical pleura l thickening as on prior exam, there may be some progress and volume loss. There is blunting of the r ight costophrenic angle. Right hilum appears retracted towards the right lung apex. No evident pneumo thorax. Heart size is stable. Prominent lung volumes with flattening the hemidiaphragms suggests unde rlying COPD. IMPRESSION: Findings consistent with patient's history of lung carcinoma.
[2019-05-11 13:12] LABS: Albumin 3.9 g/dL (3.5-5.0); Calcium 9.3 mg/dL (8.4-10.2); Potassium 4.4 mmol/L (3.5-5.1); Total Bilirubin 0.4 mg/dL (0.2-1.3); Total Protein 7.4 g/dL (6.3-8.2)
[2019-05-11 13:25] LABS: Basophils # (A) 0.2 k/uL (0-0.2); Basophils % (A) 3 %; Eosinophils # (A) 0.1 k/uL (0-0.7); Eosinophils % (A) 2 %; HCT 43.5 % (39.0-53.0); HGB 14.7 gm/dL (13.0-17.5); Lymphocytes # (A) 0.8 k/uL (1.0-4.8); Lymphocytes % (A) 12 %; MCH 31.6 pg (25.0-35.0); MCHC 33.7 g/dL (31.0-37.0); MCV 93.7 fL (80.0-100.0); Mean Platelet Volume 8.8; Monocytes # (A) 0.9 k/uL (0-1.0); Monocytes % (A) 13 %; Neutrophils # (A) 4.7 k/uL (1.3-7.7); Neutrophils % (A) 68 %; Platelet Count 329 k/uL (150-450); RBC 4.64 m/uL (4.30-5.90); RDW 13.6 % (11.5-15.5); WBC 6.9 k/uL (3.8-10.6)
[2019-05-11 13:37] VITALS: BP 149/68; PULSE 78; RESP 20
== END 2019-05-11 14:01 | disposition home or self-care (01) ==
LOC: EC 11:33
DX: J06.9 Acute upper respiratory infection, unspecified (principal); R91.8 Other nonspecific abnormal finding of lung field; J44.9 Chronic obstructive pulmonary disease, unspecified; H91.90 Unspecified hearing loss, unspecified ear; F17.200 Nicotine dependence, unspecified, uncomplicated; Z79.51 Long term (current) use of inhaled steroids; Z85.118 Personal history of other malignant neoplasm of bronchus and lung; Z92.21 Personal history of antineoplastic chemotherapy; Z92.3 Personal history of irradiation; Z53.29 Procedure and treatment not carried out because of patient's decision for other reasons
CPT/HCPCS: 36415; 80053; 85025; 87502; 71046; 99285; 96374; J2930

== ENCOUNTER → 2019-07-08 | Outpatient (CLI) | payer MEDICARE, OTHER ==
--- NOTE | 2019-07-08 11:48 | CT ---
EXAMINATION TYPE: CT chest wo/w con DATE OF EXAM: 07/08/2019 COMPARISON: Prior chest CT April 05, 2019 and older CTs. HISTORY: Follow up lung cancer CT DLP: 766.3 mGycm. Automated Exposure Control for Dose Reduction was Utilized. TECHNIQUE: CT scan of the thorax is performed following without and with IV Contrast, patient inject ed with 100 mL of Isovue 300. FINDINGS: LUNGS: There is redemonstration of right apical and upper lung volume loss with pleural and parenchym al scarring extending inferiorly and medially to the level of the right hilum. There is continued rig ht suprahilar masslike consolidation corresponding to the area of hypermetabolic uptake on PET CT Nov causing new upper lung endobronchial narrowing and occlusion from PET/CT with abrupt cut off noted axial image 18 series 7, with some distal reconstitution redemonstrated superiorly and med ially. Overall no significant interval change from most recent CT April 05, 2019 as it is difficult to distinguish mass or neoplasm from atelectasis without significant change on the without or with e nhanced images similar to prior CT. Background mild to moderate underlying emphysematous change with slightly hyperexpanded left lung. Background mild to moderate linear scarring in the right lung base. No new left-sided nodules. MEDIASTINUM: There are no new greater than 1 cm hilar or mediastinal lymph nodes. No cardiomegaly o r pericardial effusion is seen. OTHER: Moderate to severe plaque in the aorta with infrarenal AAA up to 3.6 cm on the last axial imag es redemonstrated. Early moderate multilevel anterior lateral spurring in the thoracic spine. IMPRESSION: Overall stable findings from most recent CT. I cannot exclude favor some local progressio n from PET/CT December 11, 2018 as there is thought more endobronchial narrowing and occlusion. No new metastatic disease identified.
== END | disposition home or self-care (01) ==
LOC: RADCTMAIN 10:22
PROVIDERS: ATTEND Radiology Radiation Oncology
DX: C34.11 Malignant neoplasm of upper lobe, right bronchus or lung (principal); Z92.3 Personal history of irradiation; Z92.21 Personal history of antineoplastic chemotherapy
CPT/HCPCS: 82565; 84520; 71270; 36415; Q9967

== ENCOUNTER → 2019-08-24 | Outpatient (CLI) | payer OTHER ==
--- NOTE | 2019-08-24 15:58 | MR ---
EXAMINATION TYPE: MR brain wo/w con DATE OF EXAM: 08/24/2019 COMPARISON: None HISTORY: Memory Issues. Hx of Lung CA CONTRAST: Performed utilizing 7 mL intravenous Gadavist gadolinium contrast. TECHNIQUE: Multiplanar, multiecho imaging on a 3.0 Monique magnet is performed through the brain. Stud y is performed within 24 hours of arrival to the hospital. The craniovertebral junction is normal. The pituitary is normal. Diffusion-weighted imaging is performed. No abnormal hyperintensity is present to suggest an acute i ntracranial infarct or acute ischemic change. There is some mild increased signal within the brainstem. Mild increased signal is within scattered p eriventricular areas with punctate hyperintensities on inversion recovery and T2-weighted sequences. There is a hypointense area within the left periventricular region compatible with a prior lacunar in farct. Virchow-Sathya space may be within the inferior right basal ganglion. Lacunar infarct may be less like ly at this level. Ventricles and sulci are prominent for the patient age. Following contrast administration, no suspicious enhancement is evident. IMPRESSIONS: 1. Atrophy with periventricular white matter ischemic changes. 2. Old left periventricular lacunar infarct. 3. No suspicious changes to suggest metastatic lung cancer within the [id number].
== END | disposition home or self-care (01) ==
LOC: RADMRIMAIN 12:24
PROVIDERS: ATTEND Radiology Radiation Oncology
DX: C34.11 Malignant neoplasm of upper lobe, right bronchus or lung (principal); R90.82 White matter disease, unspecified; Z86.73 Personal history of transient ischemic attack (TIA), and cerebral infarction without residual deficits; Z92.3 Personal history of irradiation; Z92.21 Personal history of antineoplastic chemotherapy
CPT/HCPCS: 70553; A9585

== ENCOUNTER 2019-08-28 20:22 | Emergency (ER) | payer MEDICARE, OTHER ==
[2019-08-28] MEDS ORDERED: SODIUM CHLORIDE 0.9% 500 ML 500 ML IV STA (20:26)
[2019-08-28 20:58] LABS: Basophils # (A) 0.1 k/uL (0-0.2); Basophils % (A) 1 %; Eosinophils # (A) 0.1 k/uL (0-0.7); Eosinophils % (A) 2 %; HCT 42.5 % (39.0-53.0); HGB 13.6 gm/dL (13.0-17.5); Lymphocytes # (A) 1.3 k/uL (1.0-4.8); Lymphocytes % (A) 16 %; MCH 30.7 pg (25.0-35.0); MCHC 31.9 g/dL (31.0-37.0); MCV 96.1 fL (80.0-100.0); Mean Platelet Volume 9.3; Monocytes # (A) 0.9 k/uL (0-1.0); Monocytes % (A) 10 %; Neutrophils # (A) 5.5 k/uL (1.3-7.7); Neutrophils % (A) 67 %; Platelet Count 297 k/uL (150-450); RBC 4.43 m/uL (4.30-5.90); RDW 13.3 % (11.5-15.5); WBC 8.2 k/uL (3.8-10.6)
--- NOTE | 2019-08-28 20:59 | ED ---
General Adult HPI - General Stated complaint: Neuro Deficits Time Seen by Provider: 08/28/19 20:22 Source: patient, family, EMS, RN notes reviewed, old records reviewed Limitations: altered mental status - History of Present Illness Initial comments: This is a 79-year-old male with past medical history significant for lung cancer. Son called EMS was about 45 minutes prior to arrival he noticed his fat her having facial droop on the right side as well as left arm weakness. Son states currently the facial droop seems to resolve but the left arm weakness is still there slightly. Patient himself does not give any history he seems to be somewhat confused as to why she is here in a little bit altered and the son agrees that he is indeed altered. Son states he does not know of any recent illnesses. Son states he does not know of any other problems the patient has been having recently. - Related Data Home Medications Medication Instructions Recorded Confirmed Albuterol Inhaler (Mhu) [Ventolin 2 puff INHALATION RT-Q4H PRN 12/21/18 01/25/19 Hfa Inhaler] Albuterol Nebulized [Ventolin 2.5 mg INHALATION RT-QID PRN 12/21/18 01/25/19 Nebulized] Fluticasone Propionate [Flonase 1 spray EA NOSTRIL DAILY PRN 12/21/18 01/25/19 Allergy Relief] Fluticasone/Salmeterol [Advair Hfa 2 puff INHALATION RT-BID 12/21/18 01/25/19 230-21 Mcg Inhaler] Allergies Allergy/AdvReac Type Severity Reaction Status Date / Time No Known Allergies Allergy Verified 08/28/19 21:03 Review of Systems ROS Statement: Those systems with pertinent positive or pertinent negative responses have been documented in the HPI. ROS Other: All systems not noted in ROS Statement are negative. Past Medical History Past Medical History: Cancer, COPD, Hearing Disorder / Deafness, Osteoarthritis (OA) Additional Past Medical History / Comment(s): LUNG CA 2015, HAD RADIATION & CHEMO TX; RECENT ABN PET SCAN. History of Any Multi-Drug Resistant Organisms: None Reported Past Surgical History: Orthopedic Surgery Additional Past Surgical History / Comment(s): SURG 5TH RIB AREA, HAD LUMP IN AXILLA. ORIF LT TIB-FIB FX. Past Anesthesia/Blood Transfusion Reactions: No Reported Reaction Past Psychological History: No Psychological Hx Reported Smoking Status: Current every day smoker Past Alcohol Use History: Occasional Past Drug Use History: None Reported - Past Family History Mother Family Medical History: Cancer Additional Family Medical History / Comment(s): BRAIN CA Son(s) Family Medical History: Cancer Additional Family Medical History / Comment(s): TESTICULAR CA General Exam - General Exam Comments Initial Comments: GENERAL: Patient is well-developed and well-nourished. Patient is nontoxic and well- hydrated and is in no acute distress. ENT: Neck is soft and supple. No significant lymphadenopathy is noted. Oropharynx is clear. Moist mucous membranes. Neck has full range of motion without eliciting any pain. EYES: The sclera were anicteric and conjunctiva were pink and moist. Extraocular movements were intact and pupils were equal round and reactive to light. Eyelids were unremarkable. PULMONARY: Unlabored respirations. Good breath sounds bilaterally. No audible rales rhonchi or wheezing was noted. CARDIOVASCULAR: There is a regular rate and rhythm without any murmurs gallops or rubs. ABDOMEN: Soft and nontender with normal bowel sounds. SKIN: Skin is clear with no lesions or rashes and otherwise unremarkable. NEUROLOGIC: Patient is alert and oriented 2. Cranial nerves II through XII are grossly intact. He has no facial droop at this time. 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 Patient is altered and takes a lot of redirecting him to get him to do some simple commands. Patient's son states this is abnormal. MUSCULOSKELETAL: Normal extremities with adequate strength and full range of motion. LYMPHATICS: No significant lymphadenopathy is noted PSYCHIATRIC: Normal psychiatric evaluation. Course Vital Signs 08/28/19 08/28/19 08/28/19 20:43 20:48 21:00 Temperature 98.4 F Pulse Rate 86 85 87 Respiratory 18 18 18 Rate Blood Pressure 145/83 162/77 154/78 O2 Sat by Pulse 97 99 98 Oximetry 08/28/19 08/28/19 08/28/19 21:15 21:30 22:00 Temperature Pulse Rate 90 88 87 Respiratory 18 18 18 Rate Blood Pressure 150/82 156/77 160/103 O2 Sat by Pulse 98 98 98 Oximetry Medical Decision Making - Medical Decision Making After patient was here about one hour his NIH was 0 and he no longer was altered son was in agreement with this assessment. CT showed a right carotid occlusion in the right sided infarct that which may have been old. Dr. Nevarez reviewed the films and wanted the patient transferred [facility] and he also wanted the patient started on aspirin and Plavix. Because the patient's NIH was no 0 TPA was not indicated. Patient's EKG showed a normal sinus rhythm at 89 bpm VT interval 176 dresses 84 QT interval 374 QTC is 455. Patient's EKG shows no ST segment elevation or depression or T wave abnormalities are noted. I spoke with [facility] they agreed to accept the patient I transfer the patient there. On discharge the patient patient still had an NIH of 0 patient received aspirin and Plavix prior to leave - Lab Data Result diagrams: 08/28/19 20:37 08/28/19 20:37 Lab Results 08/28/19 08/28/19 08/28/19 Range/Units 20:37 20:37 20:37 WBC 8.2 (3.8-10.6) k/uL RBC 4.43 (4.30-5.90) m/uL Hgb 13.6 (13.0-17.5) gm/dL Hct 42.5 (39.0-53.0) % MCV 96.1 (80.0-100.0) fL MCH 30.7 (25.0-35.0) pg MCHC 31.9 (31.0-37.0) g/dL RDW 13.3 (11.5-15.5) % Plt Count 297 (150-450) k/uL Neutrophils % 67 % Lymphocytes % 16 % Monocytes % 10 % Eosinophils % 2 % Basophils % 1 % Neutrophils # 5.5 (1.3-7.7) k/uL Lymphocytes # 1.3 (1.0-4.8) k/uL Monocytes # 0.9 (0-1.0) k/uL Eosinophils # 0.1 (0-0.7) k/uL Basophils # 0.1 (0-0.2) k/uL PT (9.0-12.0) sec INR (<1.2) APTT (22.0-30.0) sec Sodium 139 (137-145) mmol/L Potassium 4.2 (3.5-5.1) mmol/L Chloride 106 (98-107) mmol/L Carbon Dioxide 25 (22-30) mmol/L Anion Gap 8 mmol/L BUN 11 (9-20) mg/dL Creatinine 1.02 (0.66-1.25) mg/dL Est GFR (CKD-EPI)AfAm 81 (>60 ml/min/1.73 sqM) Est GFR (CKD-EPI)NonAf 70 (>60 ml/min/1.73 sqM) Glucose 92 (74-99) mg/dL Calcium 9.2 (8.4-10.2) mg/dL Total Bilirubin 0.3 (0.2-1.3) mg/dL AST 15 L (17-59) U/L ALT 7 (4-49) U/L Alkaline Phosphatase 98 (38-126) U/L Total Creatine Kinase 49 L (55-170) U/L CK-MB (CK-2) 0.7 (0.0-2.4) ng/mL CK-MB (CK-2) Rel Index 1.4 Troponin I 0.020 (0.000-0.034) ng/mL Total Protein 6.6 (6.3-8.2) g/dL Albumin 3.3 L (3.5-5.0) g/dL 08/28/19 Range/Units 20:37 WBC (3.8-10.6) k/uL RBC (4.30-5.90) m/uL Hgb (13.0-17.5) gm/dL Hct (39.0-53.0) % MCV (80.0-100.0) fL MCH (25.0-35.0) pg MCHC (31.0-37.0) g/dL RDW (11.5-15.5) % Plt Count (150-450) k/uL Neutrophils % % Lymphocytes % % Monocytes % % Eosinophils % % Basophils % % Neutrophils # (1.3-7.7) k/uL Lymphocytes # (1.0-4.8) k/uL Monocytes # (0-1.0) k/uL Eosinophils # (0-0.7) k/uL Basophils # (0-0.2) k/uL PT 9.6 (9.0-12.0) sec INR 0.9 (<1.2) APTT 25.8 (22.0-30.0) sec Sodium (137-145) mmol/L Potassium (3.5-5.1) mmol/L Chloride (98-107) mmol/L Carbon Dioxide (22-30) mmol/L Anion Gap mmol/L BUN (9-20) mg/dL Creatinine (0.66-1.25) mg/dL Est GFR (CKD-EPI)AfAm (>60 ml/min/1.73 sqM) Est GFR (CKD-EPI)NonAf (>60 ml/min/1.73 sqM) Glucose (74-99) mg/dL Calcium (8.4-10.2) mg/dL Total Bilirubin (0.2-1.3) mg/dL AST (17-59) U/L ALT (4-49) U/L Alkaline Phosphatase (38-126) U/L Total Creatine Kinase (55-170) U/L CK-MB (CK-2) (0.0-2.4) ng/mL CK-MB (CK-2) Rel Index Troponin I (0.000-0.034) ng/mL Total Protein (6.3-8.2) g/dL Albumin (3.5-5.0) g/dL Disposition Clinical Impression: Transient cerebral ischemia, Carotid occlusion, right Disposition: OTHER INSTITUTION NOT DEFINED Referrals: None,Stated [Primary Care Provider] - 1-2 days Time of Disposition: 21:18 - Out of Hospital Transfer - Req. Specs Out of Hospital Transfer - Requested Specifics: Other Emergency Center ([facility])
[2019-08-28 21:01] LABS: Albumin 3.3 g/dL (3.5-5.0); Calcium 9.2 mg/dL (8.4-10.2); Potassium 4.2 mmol/L (3.5-5.1); Total Bilirubin 0.3 mg/dL (0.2-1.3); Total Protein 6.6 g/dL (6.3-8.2)
[2019-08-28 21:03] VITALS: RESP 18; TEMP 98.4
[2019-08-28 21:04] LABS: INR 0.9 (<1.2); Partial Thromboplastin Time 25.8 sec (22.0-30.0); Prothrombin Time 9.6 sec (9.0-12.0)
[2019-08-28] MEDS ORDERED: CLOPIDOGREL 75 MG TAB PO STA (21:17)
[2019-08-28] MEDS ORDERED: ASPIRIN 325 MG TAB PO STA (21:17)
--- NOTE | 2019-08-28 21:18 | CT ---
EXAMINATION TYPE: CT brain wo con for TPA DATE OF EXAM: 08/28/2019 COMPARISON: None HISTORY: Altered mental status. CT DLP: 1097.8 mGycm Automated exposure control for dose reduction was used. There is some cerebral cortical atrophy. There is no mass effect nor midline shift. There is no sign of intracranial hemorrhage. There is bilateral lacunar infarcts in the left and right anterior customer operations intern al capsule. The calvarium is intact. Skull base is intact. IMPRESSION: Cerebral atrophy. 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 No acute abnormality.
[2019-08-28 21:21] LABS: Creatine Kinase MB 0.7 ng/mL (0.0-2.4); Troponin I 0.02 ng/mL (0.000-0.034)
--- NOTE | 2019-08-28 21:36 | CT ---
EXAMINATION TYPE: CT angio head neck DATE OF EXAM: 08/28/2019 COMPARISON: None HISTORY: Altered mental status. CT DLP: 518.2 mGycm Automated exposure control for dose reduction was used. CONTRAST: Performed with IV Contrast, patient injected with 65 mL of Isovue 370. There are 3-D post processed images. There is extensive consolidation and atelectasis in the right upper lobe. There is infiltrate around the right pulmonary hilum. There is some narrowing at the origin of the left common carotid artery. T here is atherosclerotic change in the aortic arch. There is normal branching pattern of the great ves sels on the aortic arch. There is bilateral arterial flow in the subclavian arteries. There is bilate ral arterial flow in the vertebral arteries. Left vertebral artery is larger than the right. There is arterial flow in the common carotid arteries bilaterally. There is no flow seen in the right interna l carotid artery. There is patency of the left internal carotid artery. There is approximate 50% sten osis at the origin of the left internal carotid artery with some plaque formation. There is bilateral arterial flow in the external carotid arteries. There is arterial flow in the anterior middle and posterior cerebral arteries. Exam is limited slight ly by motion. I see no evidence of intracranial aneurysm or neovascularity. There is normal contrast opacification of the venous sinuses. There is 1.5 cm lacunar infarct anterior left internal capsule. There is 1 cm lacunar infarct near the genu of the right internal capsule. There is 7 mm lacunar infa rct in the left thalamus. 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 There is approximate 50% stenosis at the origin left internal carotid artery. There is diminutive right vertebral artery. No significant intracranial angiographic abnormality. Multiple white matter lacunar infarcts.
--- NOTE | 2019-08-28 21:47 | XR ---
EXAMINATION TYPE: XR chest 1V portable DATE OF EXAM: 08/28/2019 COMPARISON: 05/11/2019 HISTORY: Altered mental status. Weakness. TECHNIQUE: FINDINGS: There is consolidation at the right lung apex with volume loss. Trachea is deviated to the right side with elevation of the right diaphragm. There is slight blunting right costophrenic angle. Heart size is normal. Left lung is clear of infiltrate. There is no heart failure. IMPRESSION: Posttreatment changes with consolidation and volume loss in the right upper lobe that has progressed compared to last exam. Pleural fluid and reaction lateral right lung base not significant ly different than last exam. Normal heart.
[2019-08-28 22:03] VITALS: BP 160/103; PULSE 87
== END 2019-08-28 22:10 | disposition other institution (70) ==
LOC: EC 20:22
DX: G45.9 Transient cerebral ischemic attack, unspecified (principal); R29.700 NIHSS score 0; J44.9 Chronic obstructive pulmonary disease, unspecified; F17.200 Nicotine dependence, unspecified, uncomplicated; Z79.51 Long term (current) use of inhaled steroids; Z92.3 Personal history of irradiation; Z92.21 Personal history of antineoplastic chemotherapy; Z85.118 Personal history of other malignant neoplasm of bronchus and lung
CPT/HCPCS: 36415; 93005; 80053; 82550; 82553; 84484; 85025; 85610; 85730; 71045; 70496; 70450; 70498; 99285; Q9967

== ENCOUNTER → 2019-10-06 | Outpatient (CLI) | payer MEDICARE ==
[2019-10-06 11:00] LABS: African American GFR (CKD) >90 (>60 ml/min/1.73 sqM); Blood Urea Nitrogen 11 mg/dL (9-20); Non-African American GFR(CKD) 80 (>60 ml/min/1.73 sqM)
--- NOTE | 2019-10-06 12:15 | CT ---
EXAMINATION TYPE: CT brain wo/w con DATE OF EXAM: 10/06/2019 COMPARISON: 08/28/2019 INDICATION: Lung cancer DLP: 2380 mGycm, Automated exposure control for dose reduction was used. CONTRAST: 100 mL Isovue-300 CT of the brain is performed utilizing 3 mm thick sections through the posterior fossa and 3 mm thick sections through the remaining calvarium. Study is performed within 24 hours of arrival to the hosp ital. No abnormal hyperdensity is present to suggest an acute intracranial hemorrhage. No mass lesion is evident. There is interval development of a right parietal-occipital watershed infarct. No significant mass ef fect on the adjacent sulci or ventricles evident. Ex vacuo effect is not evident. This has some exten sanket towards the right temporal lobe. Periventricular white matter hypodensity is present compatible with microvascular ischemic change. A lacunar infarct in the left zee radiata is evident. Following contrast administration, no abnormal enhancement is evident. Ventricles and sulci are appropriate for the patient age. There is minimal mucosal thickening within anterior ethmoid air cells. Remaining paranasal sinuses an d mastoid air cells included within the [id number] are clear. No suspicious lytic lesions are iden tified. IMPRESSIONS: 1. Interval right parietal-occipital watershed infarct with extension towards the right temporal lo be. This is likely subacute. 2. Old left zee radiata lacunar infarct. 3. Atrophy with periventricular white matter ischemic changes. 4. No suspicious enhancement or mass lesions to suggest metastatic lung cancer
--- NOTE | 2019-10-06 13:11 | CT ---
EXAMINATION TYPE: CT ChestAbdPelvis w con DATE OF EXAM: 10/06/2019 INDICATION: Lung cancer COMPARISON: 07/08/2019 CT DLP: 1621 mGycm CONTRAST: Performed with Oral Contrast and with IV Contrast, patient injected with 100 ml mL of Isovue 300. TECHNIQUE: Axial images at 5 mm thick sections. Reconstructed images in the coronal plane. Delayed images through the kidneys. FINDINGS: CT CHEST: Portion of the thyroid visualized is normal. There is a dense consolidation at the right apex with a few air bronchograms present. This soft tissu e density extends to the suprahilar region. No enlarged mediastinal or hilar adenopathy is evident. The ascending aorta diameter at the level of the main pulmonary artery is 3.2 cm. The main pulmonary artery diameter at the bifurcation is 2.[address] ABDOMEN: Liver: Normal Spleen: Normal Pancreas: Normal Adrenal glands: The adrenal glands are normal. Gallbladder: Normal Kidneys: No masses are evident. No hydronephrosis is present. No cysts are present. Delayed images were obtained through the kidneys, which remain unremarkable. Aorta: Vascular calcification is within the aorta. There is aneurysmal dilatation of the mid abdomin al aorta measuring 3.3 cm. This terminates bifurcation and begins below the level the renal arteries. There may be some aneurysmal dilatation of 1.3 cm of the proximal right common iliac artery. Left co mmon iliac artery has fusiform prominence measuring 2.0 cm. Inferior vena cava: Normal. CT PELVIS: Loops of bowel within the abdomen and pelvis are normal. There are loops of bowel which are incom pletely distended or lack oral contrast limiting their evaluation. Appendix: Not identified. No suspicious inflammatory changes are evident. Urinary bladder: Normal. Genitourinary structures: Prostate is prominent. Osseous structures: No suspicious lytic or sclerotic lesions. IMPRESSIONS: 1. 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 2. Increasing consolidation at the right apex which extends to the right suprahilar region. Findings are compatible with underlying progressive neoplasm.
== END | disposition home or self-care (01) ==
LOC: RADCTMAIN 09:48
PROVIDERS: ATTEND Internal Medicine Hematology & Oncology
DX: I71.4 Abdominal aortic aneurysm, without rupture (principal); G31.9 Degenerative disease of nervous system, unspecified; I67.82 Cerebral ischemia; I63.81 Other cerebral infarction due to occlusion or stenosis of small artery; R90.89 Other abnormal findings on diagnostic imaging of central nervous system; C34.11 Malignant neoplasm of upper lobe, right bronchus or lung
CPT/HCPCS: 82565; 84520; 70470; 71260; 74177; 36415; Q9967